=== PATIENT | female | born 1975 | race American Indian/Alaskan Native ===

== ENCOUNTER 2016-12-15 20:43 | Emergency (ER) | payer OTHER ==
[~2016-12-15] VITALS: Ht 149.9 cm; Wt 106.1 kg
[2016-12-15] MEDS ORDERED: METHOCARBAMOL500 MG PO (20:55)
[2016-12-28] MEDS ORDERED: ULTRAM50 MG PO ×2 (06:06→07:04)
== END 2016-12-15 22:04 | disposition home or self-care (01) ==
LOC: ED 20:43
DX: S30.0XXA Contusion of lower back and pelvis, initial encounter (principal); Z87.891 Personal history of nicotine dependence; Z98.51 Tubal ligation status; W22.8XXA Striking against or struck by other objects, initial encounter; Z79.899 Other long term (current) drug therapy; Z88.0 Allergy status to penicillin
CPT/HCPCS: 81001; 99283

== ENCOUNTER 2016-12-28 05:38 | Emergency (ER) | payer OTHER ==
[~2016-12-28] VITALS: Ht 149.9 cm; Wt 106.1 kg
[~2016-12-28 05:38] MED LIST: METHOCARBAMOL500 MG PO
[2016-12-28] MEDS ORDERED: IBUPROFEN600 MG PO (05:54)
[2016-12-28] MEDS ORDERED: ULTRAM50 MG PO ×4 (06:06→07:04)
[2016-12-28] MEDS ORDERED: LEVAQUIN750 MG PO (23:16)
[2016-12-28] MEDS ORDERED: TYLENOL WITH C1 EACH PO (23:16)
[2016-12-28] MEDS ORDERED: FLAGYL500 MG PO (23:16)
== END 2016-12-28 07:20 | disposition home or self-care (01) ==
LOC: ED 05:38
DX: S00.83XA Contusion of other part of head, initial encounter (principal); M54.5 Low back pain; E66.9 Obesity, unspecified; Z87.891 Personal history of nicotine dependence; Z98.51 Tubal ligation status; Z88.0 Allergy status to penicillin; Y04.2XXA Assault by strike against or bumped into by another person, initial encounter
CPT/HCPCS: 99283

== ENCOUNTER 2016-12-28 20:47 | Emergency (ER) | payer OTHER ==
[~2016-12-28] VITALS: Ht 149.9 cm; Wt 106.1 kg
[~2016-12-28 20:47] MED LIST changes: +IBUPROFEN600 MG PO; +ULTRAM50 MG PO
[2016-12-28] MEDS ORDERED: TYLENOL WITH C1 EACH PO (23:16)
[2016-12-28] MEDS ORDERED: FLAGYL500 MG PO (23:16)
[2016-12-28] MEDS ORDERED: LEVAQUIN750 MG PO (23:16)
== END 2016-12-28 23:27 | disposition home or self-care (01) ==
LOC: ED 20:47
DX: S61.250A Open bite of right index finger without damage to nail, initial encounter (principal); S00.83XA Contusion of other part of head, initial encounter; M54.5 Low back pain; G89.29 Other chronic pain; E66.9 Obesity, unspecified; F17.200 Nicotine dependence, unspecified, uncomplicated; Z98.51 Tubal ligation status; Z88.0 Allergy status to penicillin; Z79.899 Other long term (current) drug therapy; Y04.1XXA Assault by human bite, initial encounter
CPT/HCPCS: 72100; 73502; 96372; 99283; J0696

== ENCOUNTER 2017-07-31 20:15 | Emergency (ER) | payer OTHER ==
[~2017-07-31] VITALS: Ht 149.9 cm; Wt 106.1 kg
[~2017-07-31 20:15] MED LIST changes: +FLAGYL500 MG PO; +LEVAQUIN750 MG PO; +TYLENOL WITH C1 EACH PO
[2017-08-01] MEDS ORDERED: OMEPRAZOLE20 MG PO (10:59)
== END 2017-07-31 22:16 | disposition home or self-care (01) ==
LOC: ED 20:15
DX: S61.512A Laceration without foreign body of left wrist, initial encounter (principal); Z87.891 Personal history of nicotine dependence; Z88.0 Allergy status to penicillin; X78.1XXA Intentional self-harm by knife, initial encounter
CPT/HCPCS: 80053; 80176; 81001; 84443; 84703; 85025; 99283; G0480

== ENCOUNTER 2017-08-01 10:00 | Emergency (ER) | payer OTHER ==
[~2017-08-01] VITALS: Ht 149.9 cm; Wt 106.1 kg
[2017-08-01] MEDS ORDERED: OMEPRAZOLE20 MG PO (10:59)
== END 2017-08-01 12:40 | disposition home or self-care (01) ==
LOC: ED 10:00
DX: S61.512D Laceration without foreign body of left wrist, subsequent encounter (principal); K21.9 Gastro-esophageal reflux disease without esophagitis; E66.9 Obesity, unspecified; Z87.891 Personal history of nicotine dependence; Z88.0 Allergy status to penicillin; Z79.899 Other long term (current) drug therapy; Z23 Encounter for immunization; X78.9XXD Intentional self-harm by unspecified sharp object, subsequent encounter
CPT/HCPCS: 90715; 99284

== ENCOUNTER 2018-12-21 16:03 | Emergency (ER) | payer OTHER ==
[~2018-12-21] VITALS: Ht 149.9 cm; Wt 114.8 kg
[~2018-12-21 16:03] MED LIST changes: +FELDENE20 MG PO; +OMEPRAZOLE20 MG PO; +VITAMIN D22000 UNIT PO; +ZANAFLEX4 M1 PO
[2018-12-21] MEDS ORDERED: NORCO 5-325 TA1 EACH PO (17:39)
== END 2018-12-21 17:58 | disposition home or self-care (01) ==
LOC: ED 16:03
DX: S83.92XA Sprain of unspecified site of left knee, initial encounter (principal); M23.204 Derangement of unspecified medial meniscus due to old tear or injury, left knee; K21.9 Gastro-esophageal reflux disease without esophagitis; Z88.0 Allergy status to penicillin; Z79.899 Other long term (current) drug therapy; X50.1XXA Overexertion from prolonged static or awkward postures, initial encounter
CPT/HCPCS: 99283

== ENCOUNTER 2019-01-23 07:00 | Day surgery (SDC) | payer OTHER ==
[~2019-01-23] VITALS: Ht 149.9 cm; Wt 108.9 kg
[~2019-01-23 07:00] MED LIST changes: +NORCO 5-325 TA1 EACH PO
[2019-01-23] MEDS ORDERED: TUMS200 MG PO (07:20)
[2019-01-23] MEDS ORDERED: DICLOFENAC SODI75 MG PO (10:03)
[2019-01-23] MEDS ORDERED: HYDROCODON-ACE1 EA11 PO (10:04)
--- NOTE | 2019-01-23 10:24 | NUR ---
01/23/19 1024 Valerie Alfonso 1010 PT ARRIVED IN PACU NON RESPONSIVE TO VERBAL/TACTILE STIMULI WITH OPA IN PLACE. ICE TO L KNEE. 1015 OFIRMEV 1GM IV GIVEN PER ANESTHESIA REQUEST.
--- NOTE | 2019-01-23 10:53 | NUR ---
PT IS BACK TO FROM PACU. SHE IS QUICKLY FALLS ASLEEP AND SNORES IF NOT STIMULATED. SHE IS RATING HER PAIN A 7/10, "IT FEELS LIKE WHEN I HURT IT". WATER ON BEDSIDE TABLE. CALL LIGHT WITHIN REACH. NO ADDDITIONAL NEEDS AT THIS TIME. WILL CONTINUE TO MONITOR.
--- NOTE | 2019-01-23 11:53 | NUR ---
TATIANA 1045: PT IS ASSISTED UP OOB TO THE RESTROOM. SHE IS ABLE TO VOID 100MLS OF YELLOW URINE. SHE IS ABLE TO AMBULATE HERSELF WTIH STAND BY ASSIST TO AND FROM THE RESTROOM.
--- NOTE | 2019-01-23 11:54 | NUR ---
PT IS REPORTING HER PAIN IS THE SAME. SHE IS ABLE TO TOELRATE JELLO AND WATER. SHE WOULD LIKE A PAIN PILL. CALL LIGHT WITHIN REACH. NO ADDITIONAL NEEDS.
--- NOTE | 2019-01-23 12:45 | NUR ---
PT'S DAUGHTER AND GRANDDAUGHTER ARE AT THE BEDSIDE. THE PT REPORTS THAT SHE WOULD LIKE TO GO HOME. SHE IS EDUCATED ON HOW TO BEST GET DRESSED AND TO OPEN HER CURTAIN WHEN SHE IS READY TO GO.
--- NOTE | 2019-01-23 13:07 | NUR ---
PT IS GIVEN VERBAL DC INSTRUCTIONS WITH DAUGHTER AND GRANDDAUGHTER PRESENT. PT VERBALIZES UNDERSTANDING AND DENIES HAVING ANY QUESTIONS. PT IS TAKEN TO VEHICLE VIA WC. SHE IS ABLE TO TRANSFER HERSELF FROM WC TO VEHICLE.
--- NOTE | 2019-01-24 07:53 | OR ---
[facility] [address], [place] [address] Signed DATE OF OPERATION: 01/23/2019 SURGEON: Yohana Genao MD PREOPERATIVE DIAGNOSIS: Medial meniscus tear, left knee. POSTOPERATIVE DIAGNOSIS: Medial meniscus tear, left knee. PROCEDURE PERFORMED: Left knee arthroscopy with partial medial meniscectomy. ASSISTANTS: 1. Mis Castillo PA-C. 2. JAYASHREE Jaime. Mis was present and critical for all portions of procedure. ANESTHESIA: General. BLOOD LOSS: Minimal. BRIEF HISTORY: Rey is a 44-year-old female with painful locking in her knee. She had minimal arthrosis on her x-rays and a medial meniscus tear on the MRI. Risks and benefits of operative treatment were discussed with her and she elected to proceed. Once consent was obtained, she was taken to the operating room. After adequate anesthesia, she was placed on operating room table. The right leg was flexed, abducted, and externally rotated on a well-padded leg gaxiola. The left was placed in well-padded leg gaxiola and the portal sites were pre-injected using 0.25% Marcaine with epinephrine under alcohol prep. The leg was then prepped and draped in a standard sterile fashion. Standard inferolateral and superolateral portals were made and the scope was introduced in the knee. ARTHROSCOPIC FINDINGS: The knee showed a marked synovitis throughout the knee. 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 The lateral compartment is intact. ACL and Electronically Signed By: YOHANA GENAO MD 01/24/19 0753 PATIENT NAME: REY MONTEJO OPERATIVE REPORT DATE OF : 75 REPORT #: [id number] PHYSICIAN: YOHANA GENAO MD PCP: CHEO PARSONS REPORT IS CONFIDENTIAL AND NOT TO BE RELEASED WITHOUT AUTHORIZATION [facility] [address], [place] [address] Signed PCL were intact. Medial compartment showed diffuse grade 2 chondromalacia on both sides of the joint. It was a complex tear of the medial meniscus posteriorly. DESCRIPTION OF OPERATION: Standard inferomedial portal was established after localization using a spinal needle. The straight and bent biters were then used to trim the meniscus tear back to stable rim. The shaver was then introduced and the remaining meniscus was beveled out and all debris was evacuated. The scope was then withdrawn. Portals were closed with 3-0 nylon and dressed with Adaptic, ABD, and Grupo wrap. She tolerated the procedure well. All sponge, needle, and instrument counts were correct. The knee was injected with 60 mg Toradol at the end of the case. Yohana Genao MD BA/JONAHL /[id number] Copies: ~ Electronically Signed By: YOHANA GENAO MD 01/24/19 0753 PATIENT NAME: REY MONTEJO OPERATIVE REPORT DATE OF : 75 REPORT #: [id number] PHYSICIAN: YOHANA GENAO MD PCP: CHEO PARSONS REPORT IS CONFIDENTIAL AND NOT TO BE RELEASED WITHOUT AUTHORIZATION
== END 2019-01-23 12:55 | disposition home or self-care (01) ==
LOC: DS 07:00 → OPS 07:00 → DS 08:30 → OPS 09:30
PROVIDERS: Specialist
PROC: 0SBD4ZZ Excision of Left Knee Joint, Percutaneous Endoscopic Approach (ICD-10-PCS; principal; 2019-01-23 09:30)
DX: S83.232A Complex tear of medial meniscus, current injury, left knee, initial encounter (principal); M65.9 Synovitis and tenosynovitis, unspecified; M94.262 Chondromalacia, left knee; M17.12 Unilateral primary osteoarthritis, left knee; E66.01 Morbid (severe) obesity due to excess calories; G47.33 Obstructive sleep apnea (adult) (pediatric); M25.362 Other instability, left knee; Z88.0 Allergy status to penicillin; Z79.899 Other long term (current) drug therapy; W00.0XXA Fall on same level due to ice and snow, initial encounter; Z68.42 Body mass index [BMI] 45.0-49.9, adult
CPT/HCPCS: J0131; J0690; J1100; J1885; J2405; J2704; J3010; J7120

== ENCOUNTER 2019-06-12 19:52 | Emergency (ER) | payer OTHER ==
[~2019-06-12] VITALS: Ht 149.9 cm; Wt 114.3 kg
[~2019-06-12 19:52] MED LIST changes: +DICLOFENAC SODI75 MG PO; +HYDROCODON-ACE1 EA11 PO; +TUMS200 MG PO
--- OUTSIDE RECORDS SUMMARY | 2019-06-12 19:56 | XMS ---
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 EBevDBev VISIT COUNT (12 MO.) 3 [facility] [place] TOTAL 5 NOTE: Visits indicate total known visits. ED/UCC VISIT TRACKING (12 MO.) 06/12/2019 19:53 [facility] TYPE: Emergency COMPLAINT: - COUGH/DIARRHEA/COLD SYMPTOMS 12/21/2018 16:04 [facility] TYPE: Emergency COMPLAINT: - LEFT KNEE PAIN/ NO RECENT INJURY DIAGNOSES: - Allergy status to penicillin - Derang of unsp medial meniscus due to old tear/inj, l knee - Gastro-esophageal reflux disease without esophagitis - Overexertion from prolonged static or awkward postures, init - Other chcf (current) drug therapy - Pain in left knee - Sprain of unspecified site of left knee, initial encounter 07/27/2018 19:03 [facility] [place] TYPE: Emergency COMPLAINT: - SOB 07/19/2018 21:30 [facility] TYPE: Emergency COMPLAINT: - left knee pain, cough [facility]2018 08[facility] COMPLAINT: - knee injury INPATIENT VISIT TRACKING (12 MO.) No inpatient visits to display in this time frame [id number]
[2019-06-12] MEDS ORDERED: VENTOLIN HFA18 GM INH (20:19)
[2019-06-12] MEDS ORDERED: TYLENOL325 M1 PO (20:20)
[2019-06-12] MEDS ORDERED: PROTONIX40 MG PO (20:20)
[2019-06-12] MEDS ORDERED: ZITHROMAX250 MG PO (20:21)
[2019-06-12] MEDS ORDERED: GUAICON DMS PO (20:21)
[2019-06-12] MEDS ORDERED: ZOFRAN4 MG PO (20:22)
== END 2019-06-12 20:29 | disposition home or self-care (01) ==
LOC: ED 19:52
DX: K52.9 Noninfective gastroenteritis and colitis, unspecified (principal); J20.9 Acute bronchitis, unspecified; E66.9 Obesity, unspecified; F17.200 Nicotine dependence, unspecified, uncomplicated; Z88.0 Allergy status to penicillin; Z79.899 Other long term (current) drug therapy
CPT/HCPCS: 99283

== ENCOUNTER 2019-06-29 20:17 | Emergency (ER) | payer OTHER ==
[~2019-06-29] VITALS: Ht 149.9 cm; Wt 114.3 kg
[~2019-06-29 20:17] MED LIST changes: +GUAICON DMS PO; +PROTONIX40 MG PO; +TYLENOL325 M1 PO; +VENTOLIN HFA18 GM INH; +ZITHROMAX250 MG PO; +ZOFRAN4 MG PO
--- OUTSIDE RECORDS SUMMARY | 2019-06-29 20:20 | XMS ---
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 E.D. VISIT COUNT (12 MO.) 3 [facility] 3 [facility] TOTAL 6 NOTE: Visits indicate total known visits. ED/UCC VISIT TRACKING (12 MO.) 06/29/2019 20:18 [facility] TYPE: Emergency COMPLAINT: - LEFT KNEE PAIN 06/12/2019 19:53 [facility] TYPE: Emergency COMPLAINT: - COUGH/DIARRHEA/COLD SYMPTOMS DIAGNOSES: - Other nursing home (current) drug therapy - Allergy status to penicillin - Cough - Obesity, unspecified - Nicotine dependence, unspecified, uncomplicated - Noninfective gastroenteritis and colitis, unspecified - Acute bronchitis, unspecified 12/21/2018 16:04 [facility] TYPE: Emergency COMPLAINT: - LEFT KNEE PAIN/ NO RECENT INJURY DIAGNOSES: - Allergy status to penicillin - Derang of unsp medial meniscus due to old tear/inj, l knee - Gastro-esophageal reflux disease without esophagitis - Overexertion from prolonged static or awkward postures, init - 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
[2019-06-29] MEDS ORDERED: ULTRAM50 MG PO (22:44)
[2019-06-30] MEDS ORDERED: ONDANSETRON ODT8 MG PO (15:55)
[2019-06-30] MEDS ORDERED: NORCO 5-325 TA1 EACH PO (15:55)
== END 2019-06-29 22:51 | disposition home or self-care (01) ==
LOC: ED 20:17
DX: S80.02XA Contusion of left knee, initial encounter (principal); W22.8XXA Striking against or struck by other objects, initial encounter; E66.9 Obesity, unspecified; F17.200 Nicotine dependence, unspecified, uncomplicated; Z88.0 Allergy status to penicillin; Z79.899 Other long term (current) drug therapy
CPT/HCPCS: 73560; 99283-25

== ENCOUNTER 2019-06-30 14:17 | Emergency (ER) | payer OTHER ==
[~2019-06-30] VITALS: Ht 149.9 cm; Wt 114.3 kg
--- OUTSIDE RECORDS SUMMARY | 2019-06-30 14:20 | XMS ---
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 E.D. VISIT COUNT (12 MO.) 3 [facility]. 4 [facility] TOTAL 7 NOTE: Visits indicate total known visits. ED/UCC VISIT TRACKING (12 MO.) 06/30/2019 14:19 [facility] TYPE: Emergency COMPLAINT: - VISION PROBLEM, DIZZYNESS 06/29/2019 20:18 [facility] TYPE: Emergency COMPLAINT: - LEFT KNEE PAIN 06/12/2019 19:53 [facility] TYPE: Emergency COMPLAINT: - COUGH/DIARRHEA/COLD SYMPTOMS DIAGNOSES: - Other retirement (current) drug therapy - Allergy status to [...] static or awkward postures, init - Other retirement (current) drug therapy - Pain in left knee - Sprain of unspecified site of left knee, initial encounter [facility]2018 [facility] COMPLAINT: - SOB 07/19/2018 21:30 [facility] [place] TYPE: Emergency COMPLAINT: - left knee pain, cough 06/30/2018 08:25 [facility] TYPE: Emergency COMPLAINT: - knee injury INPATIENT VISIT TRACKING (12 MO.) No inpatient visits to display in this time frame [email or web address]
[2019-06-30] MEDS ORDERED: NORCO 5-325 TA1 EACH PO (15:55)
[2019-06-30] MEDS ORDERED: ONDANSETRON ODT8 MG PO (15:55)
== END 2019-06-30 16:05 | disposition home or self-care (01) ==
LOC: ED 14:17
DX: R42 Dizziness and giddiness (principal); R53.83 Other fatigue; T40.4X5A Adverse effect of other synthetic narcotics, initial encounter; E66.9 Obesity, unspecified; F17.200 Nicotine dependence, unspecified, uncomplicated; Z88.0 Allergy status to penicillin; Z79.899 Other long term (current) drug therapy
CPT/HCPCS: 99283; 99406

== ENCOUNTER 2019-12-05 19:05 | Emergency (ER) | payer OTHER ==
[~2019-12-05] VITALS: Ht 149.9 cm; Wt 99.3 kg
[~2019-12-05 19:05] MED LIST changes: +ONDANSETRON ODT8 MG PO
--- OUTSIDE RECORDS SUMMARY | 2019-12-05 19:08 | XMS ---
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 Care History Medical/Surgical 07/01/2019 [facility], \T\middot;\T\nbsp; PLEASE REFER PATIENT TO [facility] FOR NON EMERGENT MEDICAL NEEDS. \T\middot;\T\nbsp; [facility] CAN SEE PATIENTS SAME DAY FOR APTS IF PATIENT CALLS FIRST THING IN THE MORNING. E.D. VISIT COUNT (12 MO.) 5 [facility] TOTAL 5 NOTE: Visits indicate total known visits. ED/UCC VISIT TRACKING (12 MO.) 12/05/2019 19:05 [facility] TYPE: Emergency COMPLAINT: - LT ARM LACERATION 06/30/2019 14:19 [facility] TYPE: Emergency COMPLAINT: - VISION PROBLEM, DIZZYNESS DIAGNOSES: - Adverse effect of other synthetic narcotics, initial encounte - Allergy status to penicillin - Obesity, unspecified - Dizziness and giddiness - Other fdc (current) drug therapy - Nicotine dependence, other tobacco product, uncomplicated - Other fatigue - Nicotine dependence, unspecified, uncomplicated 06/29/2019 20:18 [facility] TYPE: Emergency COMPLAINT: - LEFT KNEE PAIN DIAGNOSES: - Other fdc (current) drug therapy - Pain in left knee - Obesity, unspecified - Nicotine dependence, unspecified, uncomplicated - Contusion of left knee, initial encounter - Allergy status to penicillin - Striking against or struck by other objects, initial encounte 06/12/2019 19:53 [facility] TYPE: Emergency COMPLAINT: - COUGH/DIARRHEA/COLD SYMPTOMS DIAGNOSES: - Other fdc (current) drug therapy - Allergy status to penicillin - Cough - Obesity, unspecified - Nicotine dependence, unspecified, uncomplicated - Noninfective gastroenteritis and colitis, unspecified - Acute bronchitis, unspecified 12/21/2018 16:04 [facility] TYPE: Emergency COMPLAINT: - LEFT KNEE PAIN/ NO RECENT INJURY DIAGNOSES: - Allergy status to penicillin - Derangement of unspecified medial meniscus due to old tear or - Gastro-esophageal reflux disease without esophagitis - Overexertion from prolonged static or awkward postures, initi - 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
== END 2019-12-06 01:04 | disposition home or self-care (01) ==
LOC: ED 19:05
PROC: 0HQEXZZ Repair Left Lower Arm Skin, External Approach (ICD-10-PCS; principal; 2019-12-05)
DX: R45.851 Suicidal ideations (principal); S61.512A Laceration without foreign body of left wrist, initial encounter; F10.129 Alcohol abuse with intoxication, unspecified; K21.9 Gastro-esophageal reflux disease without esophagitis; F17.200 Nicotine dependence, unspecified, uncomplicated; Z23 Encounter for immunization; Z88.0 Allergy status to penicillin; Z91.048 Other nonmedicinal substance allergy status; Z79.899 Other long term (current) drug therapy
CPT/HCPCS: 12002; 80053; 80176; 81001; 84443; 84703; 85025; 90471; 90715; 99284-25; G0480